=== PATIENT | female | born 2000 | race Caucasian/White ===

== ENCOUNTER 2019-05-27 20:37 | Emergency (ER) | payer MEDICAID ==
[~2019-05-27] VITALS: Ht 160 cm; Wt 67.1 kg
[2019-05-27 20:42] VITALS: Ht 160 cm; Wt 67.1 kg
[2019-05-27 23:08] VITALS: BP 108/76
== END 2019-05-27 23:08 | disposition home or self-care (01) ==
LOC: ED 20:37
DX: R11.2 Nausea with vomiting, unspecified (principal); R63.0 Anorexia
CPT/HCPCS: Q0162